=== PATIENT | female | born 1975 | race Caucasian/White ===

== ENCOUNTER 2016-10-10 12:56 | Emergency (ER) | payer BC ==
[2016-10-10] MEDS ORDERED: LIDOCAINE-EPINEPH-TETRACAINE 3 ML SYRINGE TOP STA (13:29)
[2016-10-10] MEDS ORDERED: LIDOCAINE 1%-EPI 1:100000 20 ML MDV SUBQ STA (13:30)
[2016-10-10] MEDS ORDERED: LIDOCAINE 1%-EPI 1:100000 20 ML MDV ONE (13:35)
[2016-10-10] MEDS ORDERED: LIDOCAINE-EPINEPH-TETRACAINE 3 ML SYRINGE TOP ONE (13:35)
[2016-10-10] MEDS ORDERED: TETANUS/DIPHTHERIA/PERTUSSIS 0.5 ML SYRINGE IM ONE (13:43)
== END 2016-10-10 14:43 | disposition home or self-care (01) ==
DX: S61.411A Laceration without foreign body of right hand, initial encounter (principal); W45.8XXA Other foreign body or object entering through skin, initial encounter; Z23 Encounter for immunization; E03.9 Hypothyroidism, unspecified

== ENCOUNTER 2019-04-16 14:05 | Emergency (ER) | payer BC ==
--- NOTE | 2019-04-16 15:09 | XRAY Report ---
Reason: cp Procedure Date: 04/16/2019 Accession Number: [id number] / [id number] Procedure: XR - Chest 2 View X-Ray CPT Code: 02379 FULL RESULT: EXAM: CHEST RADIOGRAPHY EXAM DATE: 04/16/2019 02:45 PM. CLINICAL HISTORY: Chest pain. Shortness of breath last night. COMPARISON: None. TECHNIQUE: 2 views. FINDINGS: Lungs/Pleura: No focal opacities evident. No pleural effusion. No pneumothorax. Normal volumes. Mediastinum: Heart and mediastinal contours are unremarkable. Other: None. IMPRESSION: Normal 2-view chest radiography. RADIA
[2019-04-16] MEDS ORDERED: IBUPROFEN 600 MG TABLET PO STA (15:56)
[2019-04-16] MEDS ORDERED: oxyCODONE 5 MG TABLET PO STA (15:56)
--- NOTE | 2019-04-16 15:58 | ED Physician Documentation ---
History of Present Illness - Stated complaint Stated Complaint: DIFFICULTY BREATHING/CP - Chief complaint Chief Complaint: General - History obtained from History obtained from: Patient - History of Present Illness Timing: Last night (43-year-old woman who takes oral control. She does not smoke. She complains of chills and body aches starting yesterday evening and all night last night she has had pleuritic upper right chest pain radiating to the back. It similar to prior episode of pneumonia, during which there was some concern for pulmonary embolism on CT per her but she was never treated with anticoagulants. She denies pedal edema or calf pain. She denies cough.) Review of Systems Ten Systems: 10 systems reviewed and negative Constitutional: reports: Chills. denies: Fever Cardiac: denies: Palpitations, Pedal edema, Calf pain Respiratory: reports: Dyspnea. 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 - Present Medications Home Medications: Ambulatory Orders Medication Instructions Recorded Confirmed Bcp 10/10/16 Levothyroxine Sodium 50 mcg PO DAILY 10/10/16 10/10/16 Azithromycin 1 tab PO DAILY #4 tablet 04/16/19 - Allergies Allergies/Adverse Reactions: Allergies Allergy/AdvReac Type Severity Reaction Status Date / Time No Known Drug Allergies Allergy Verified 04/16/19 14:10 - Social History Does the pt smoke?: No Smoking Status: Never smoker - Immunizations Immunizations are current?: Yes PD ED PE NORMAL - Vitals Vital signs reviewed: Yes - General General: Alert and oriented X 3, Other (Slightly uncomfortable splinting her breaths.) - HEENT HEENT: PERRL, EOMI - Neck Neck: Supple, no meningeal sign, No bony TTP - Cardiac Cardiac: RRR, No murmur - Respiratory Respiratory: No respiratory distress, Clear bilaterally - Abdomen Abdomen: Non tender - Extremities Extremities: No edema, No calf tenderness / cord - Neuro Neuro: Alert and oriented X 3, Normal speech Results - Vitals Vitals: Vital Signs - 24 hr 04/16/19 04/16/19 14:10 16:31 Temperature 37.4 C Heart Rate 92 92 Respiratory 18 15 Rate Blood Pressure 102/55 L 107/67 O2 Saturation 100 100 Oxygen O2 Source Room air - EKG (time done) 1422 Rate: Rate (enter#) (87) Rhythm: NSR Morgan: Normal Intervals: Normal [place] QRS: Normal Ischemia: Normal ST segments Computer interpretation: Agree with computer - Labs Labs: Laboratory Tests 04/16/19 04/16/19 16:09 16:09 WBC 16.5 H RBC 3.80 L Hgb 12.0 Hct 36.1 L MCV 95.0 MCH 31.6 H MCHC 33.2 RDW 12.7 Plt Count 246 MPV 9.8 Neut # (Auto) 14.1 H Lymph # (Auto) 1.2 L Clarke # (Auto) 0.9 Eos # (Auto) 0.0 Baso # (Auto) 0.1 Absolute Nucleated RBC 0.00 Nucleated RBC % 0.0 Sodium 137 Potassium 3.3 L Chloride 102 Carbon Dioxide 23 Anion Gap 12.0 BUN 12 Creatinine 0.7 Estimated GFR (MDRD) 92 Glucose 157 H Calcium 8.7 Total Bilirubin 0.8 AST 16 ALT 15 Alkaline Phosphatase 36 L Total Protein 8.0 Albumin 4.4 Globulin 3.6 Albumin/Globulin Ratio 1.2 Lipase 26 - Rads (name of study) CXR Radiology: EMP read contemporaneously (neg) CTPA Radiology: EMP read contemporaneously (no PE, but +PNA RML) PD MEDICAL DECISION MAKING - ED course ED course: 43-year-old woman who had a similar episode in September with eventual diagnosis of pneumonia presents with pleuritic right-sided chest pain. She is on control. Chest x-ray was negative and CT pulmonary angiogram was negative for PE but did show an occult right middle lobe pneumonia. Departure - Departure Disposition: 01 Home, Self Care Clinical Impression: Pleuritic chest pain Pneumonia Qualifiers: Pneumonia type: due to unspecified organism Laterality: right Lung location: middle lobe of lung Qualified Code(s): J18.1 - Lobar pneumonia, unspecified organism Condition: Good Record reviewed to determine appropriate education?: Yes Instructions: ED Pneumonia Adult Prescriptions: Azithromycin 1 tab PO DAILY #4 tablet Comments: Call your doctor to arrange a follow-up appointment, make the next available appointment. In the interim, return anytime if worse or if new symptoms develop.
[2019-04-16 16:15] LABS: BASOPHILS # (AUTO) 0.1 10^3/uL (0.0-0.1); BASOPHILS % (AUTO) 0.4 %; EOSINOPHILS % (AUTO) 0.2 %; LYMPHOCYTES # (AUTO) 1.2 10^3/uL (1.5-3.5); LYMPHOCYTES % (AUTO) 7.5 %; MEAN CORPUSCULAR HEMOGLOBIN 31.6 pg (27.0-31.0); MEAN CORPUSCULAR HGB CONC 33.2 g/dL (32.0-36.0); MEAN PLATELET VOLUME 9.8 fL (7.9-10.8); MONOCYTES # (AUTO) 0.9 10^3/uL (0.0-1.0); MONOCYTES % (AUTO) 5.3 %; NEUTROPHILS # (AUTO) 14.1 10^3/uL (1.5-6.6); NEUTROPHILS % (AUTO) 85.9 %; PLT - PLATELET COUNT 246 10^3/uL (130-450); RED CELL DISTRIBUTION WIDTH 12.7 % (12.0-15.0); WHITE BLOOD COUNT 16.5 x10^3/uL (4.8-10.8)
[2019-04-16 16:28] LABS: ALBUMIN 4.4 g/dL (3.2-5.5); ALBUMIN/GLOBULIN RATIO 1.2 (1.0-2.2); BILIRUBIN,TOTAL 0.8 mg/dL (0.2-1.0); CALCIUM 8.7 mg/dL (8.5-10.3); CREATININE 0.7 mg/dL (0.4-1.0)
[2019-04-16] MEDS ORDERED: IOVERSOL 320 100 ML VIAL IVP ONE ×2 (16:46→19:30)
--- NOTE | 2019-04-16 17:26 | CT Report ---
Reason: Pleuritic R CP Procedure Date: 04/16/2019 Accession Number: [id number] / [id number] Procedure: CT - ANGIO CHEST W/WO CPT Code: FULL RESULT: EXAM: CT ANGIOGRAM CHEST EXAM DATE: 04/16/2019 04:55 PM. CLINICAL HISTORY: Pleuritic R CP. COMPARISON: None. TECHNIQUE: Routine helical imaging was performed through the chest in the pulmonary arterial phase. IV Contrast: OPTI 320 80ML. Reconstructions: Coronal 3-D MIP reconstructions.Sagittal and coronal. In accordance with CT protocol optimization, one or more of the following dose reduction techniques were utilized for this exam: automated exposure control, adjustment of mA and/or KV based on patient size, or use of iterative reconstructive technique. FINDINGS: Pulmonary Arteries: Diagnostic quality: Adequate through the segmental arteries. Negative for acute pulmonary embolism. Main pulmonary artery size is normal. Lungs/Pleura: There is a focal pulmonary consolidation in the medial segment right middle lobe. There are central air bronchograms. Lungs otherwise clear. Negative for pleural effusion and pneumothorax. Mediastinum: Heart size is normal. Negative for pericardial effusion. Thoracic Aorta: Unremarkable. Upper Abdomen: Unremarkable. Other: None. IMPRESSION: 1. Negative for acute pulmonary embolism. 2. Right middle lobe consolidation suspicious for pneumonia. 3. Otherwise negative. RADIA
[2019-04-16] MEDS ORDERED: AZITHROMYCIN 250 MG TABLET PO STA (17:41)
[2019-04-16 17:51] VITALS: BP 97/57
== END 2019-04-16 17:51 | disposition home or self-care (01) ==
LOC: ED 14:05
DX: J18.9 Pneumonia, unspecified organism (principal); R07.81 Pleurodynia
CPT/HCPCS: 36415; 71046; 71275; 80053; 83690; 85025; 93005; 99283; 99284; A9270; Q9967

== ENCOUNTER 2021-10-26 09:44 | Outpatient (CLI) | payer BC ==
--- NOTE | 2021-11-05 09:47 | Mammography Report ---
BILATERAL DIGITAL SCREENING MAMMOGRAM 3D/2D WITH EXAGGERATED CC: 10/26/2021 CLINICAL: Routine screening. No prior exams were available for comparison. The tissue of both breasts is heterogeneously dense. T his may lower the sensitivity of mammography. No significant masses, calcifications, or other findings are seen in either breast. IMPRESSION: NEGATIVE There is no mammographic evidence of malignancy. A 1 year screening mammogram is recommended. This exam was interpreted at Station ID: [id number]. NOTE: For mammograms, a report in lay terms will be sent to the patient. Approximately 15% of breast malignancies will not be visualized mammographically. In the management of a palpable breast mass, a negative mammogram must not discourage biopsy of a clinically suspicious lesion. Electronically Signed By: Mack Bloom M.D. [facility] – [place]:11/05/2021 08:43:03 ACR BI-RADS Category 1: Negative [id number] PARENCHYMAL PATTERN: (D) - The breast(s) demonstrate(s) heterogeneously dense fibroglandular christine friend. BI-RADS CATEGORY: (1) - 1 RECOMMENDATION: (ANNUAL) - Recommend routine annual screening mammography. [id number] 1 year screening LATERALITY: (B)
== END 2021-10-26 09:45 | disposition home or self-care (01) ==
LOC: DI.S 09:44
DX: Z12.31 Encounter for screening mammogram for malignant neoplasm of breast (principal)